=== PATIENT | male | born 1970 | race Two or more races ===

== ENCOUNTER 2025-01-26 05:29 | Inpatient (IN) | payer BC, OTHER ==
[~2025-01-26] VITALS: Ht 175.3 cm; Wt 91.3 kg
[2025-01-26 06:45] VITALS: PULSE 59; RESP 20; O2SAT 99
--- NOTE | 2025-01-26 06:48 | ED.PDOC ---
GI ASSESSMENT HPI Comments 54-year-old male with PMHx Diverticulitis presents with a chief complaint of abdominal pain x 01/23/2025 onset. Patient states that his pain is localized to his LLQ, nonradiating, and feels just like his diverticulitis in the past. Patient denies any nausea, vomiting, diarrhea, or rectal bleeding. No other symptoms or modifying factors present at this time. Chief Complaint: Abdominal Pain Time Seen by MD: 06:19 Reviewed Notes: Medications, Allergies Allergies: Coded Allergies: NO KNOWN ALLERGIES (Unverified , 01/26/25) Information Source: Patient Mode of Arrival: Ambulatory Timing: Days Duration: Since onset Prehospital treatment: None Quality: Cramping Vomitus: None Stool: Normal Severity: Moderate Recent: None Pain Location: LLQ Associated sign and symptoms: Abdominal Pain Past Medical History Past Medical History (Other): DIVERTICULITIS Surgical History: Denies all surgeries Family History Family History: Reviewed,noncontributory to illness Social History Smoker: Non-Smoker Alcohol: Denies ETOH Use Drugs: Denies Drug Use Lives In: Home Constitutional: denies: chills, diaphoresis, fatigue, fever, malaise, sweats, weakness, others EENTM: denies: blurred vision, double vision, ear bleeding, ear discharge, ear drainage, ear pain, ear ringing, eye pain, eye redness, hearing loss, mouth pain, mouth swelling, nasal discharge, nose bleeding, nose congestion, nose pain, photophobia, tearing, throat pain, throat swelling, voice changes, others Respiratory: denies: cough, hemoptysis, orthopnea, SOB at rest, shortness of breath, SOB with excertion, stridor, wheezing, others Cardiovascular: denies: chest pain, dizzy spells, diaphoresis, Dyspnea on exertion, edema, irregular heart beat, left arm pain, lightheadedness, palpitations, PND, syncope, others Gastrointestinal: reports: abdominal pain; denies: abdomen distended, blood streaked bowels, constipated, diarrhea, dysphagia, difficulty swallowing, hematemesis, melena, nausea, poor appetite, poor fluid intake, rectal bleeding, rectal pain, vomiting, others Genitourinary: denies: burning, dysuria, flank pain, frequency, hematuria, incontinence, penile discharge, penile sore, pain, testicle pain, testicle swelling, urgency, others Neurological: denies: dizziness, fainting, headache, left sided numbness, left sided weakness, numbness, paresthesia, pre-existing deficit, right sided numbness, right sided weakness, seizure, speech problems, tingling, tremors, weakness, others Musculoskeletal: denies: back pain, gout, joint pain, joint swelling, muscle pain, muscle stiffness, neck pain, others Integumetry: denies: bruises, change in color, change in hair/nails, dryness, laceration, lesions, lumps, rash, wounds, others Allergic/Immunocompromised: denies: Difficulty Healing, Frequent Infections, Hives, Itching, others Hematologic/Lymphatic: denies: anemia, blood clots, easy bleeding, easy bruising, swollen glands, others Endocrine: denies: excessive hunger, excessive sweating, excessive thirst, excessive urination, flushing, intolerance to cold, intolerance to heat, unexplained weight gain, unexplained weight loss, others Psychiatric: denies: anxiety, bipolar disorder, depression, hopeless, panic disorder, schizophrenia, sleepless, suicidal, others All Other Systems: Reviewed and Negative Physical Exam General Appearance: No Apparent Distress, Normal HEENT: Normal ENT Inspection, Pharynx Normal, TMs Normal Neck: Full Range of Motion, Non-Tender, Normal, Normal Inspection Respiratory: Chest Non-Tender, Lungs Clear, No Accessory Muscle Use, No Respiratory Distress, Normal Breath Sounds Cardiovascular: No Edema, No JVD, No Murmur, No Gallop, Normal Peripheral Pulses, Regular Rate/Rhythm Breast Exam: Deferred Gastrointestinal: No Organomegaly, No Pulsatile Mass, Normal Bowel Sounds, Soft, Tenderness (LLQ) Genitalia: Deferred Pelvic: Deferred Rectal: Deferred Extremities: No calf tenderness, Normal capillary refill, Normal inspection, Normal range of motion, Non-tender, No pedal edema Musculoskeletal : Apperance: Normal Neurologic: Alert, necktie operator pockets and pieces II-XII nml as Tested, No Motor Deficits, Normal Affect, Normal Mood, No Sensory Deficits Cerebellar Function: Normal Reflexes: Normal Skin: Dry, Normal Color, Warm Lymphatic: No Adenopathy Was a procedure done? Was a procedure done?: No GI differential Dx Differential Diagnosis: Appendicitis, Bowel Obstruction, Constipation, Diverticular disease, Gastritis/PUD, Gastroenteritis, GI hemorrhage, Hernia, Inflammatory BD, Ischemic Bowel, Impaction, Mass, Kidney Stone X-Ray, Labs, Meds, VS Vital Signs Date Time Temp Pulse Resp B/P (MAP) Pulse Ox O2 Delivery O2 Flow Rate FiO2 01/26/25 10:30 84 20 132/67 (88) 96 01/26/25 08:00 71 20 122/57 (78) 93 01/26/25 08:00 83 01/26/25 07:35 98.1 65 16 85/38 (54) 100 98.1 01/26/25 07:35 16 100 Room Air* 0 21 01/26/25 06:51 122/68 01/26/25 06:45 98.1 59 20 122/68 (86) 99 98.1 01/26/25 06:45 59 20 99 Room Air* 0 21 01/26/25 05:39 98.2 104 16 115/77 (90) 99 98.2 Lab Test 01/26/25 09:24 01/26/25 07:08 Range/Units Lactic Acid Level 1.0 0.4-2.0 mmol/L Troponin I High Sensitivity < 3 L < 3 L </=54 ng/L White Blood Count 16.9 H 4.4-10.8 10^3/uL Red Blood Count 5.11 4.5-5.90 10^6/uL Hemoglobin 16.0 13.5-17.5 g/dL Hematocrit 46.7 41.0-53.0 % Mean Corpuscular Volume 91.4 80.0-100.0 fL Mean Corpuscular Hemoglobin 31.3 28.0-32.0 pg Mean Corpuscular Hemoglobin Concent 34.2 32.0-36.0 g/dL Red Cell Distribution Width 13.8 11.8-14.3 % Platelet Count 297 140-450 10^3/uL Mean Platelet Volume 7.4 6.9-10.8 fL Neutrophils (%) (Auto) 82.3 H 37.0-80.0 % Lymphocytes (%) (Auto) 10.4 10.0-50.0 % Monocytes (%) (Auto) 6.8 0.0-12.0 % Eosinophils (%) (Auto) 0.2 0.0-7.0 % Basophils (%) (Auto) 0.3 0.0-2.0 % Neutrophils # (Auto) 13.9 H 1.6-8.6 10 ^3/uL Lymphocytes # (Auto) 1.8 0.4-5.4 10 ^3/uL Monocytes # (Auto) 1.2 0-1.3 10 ^3/uL Eosinophils # (Auto) 0 0-0.8 10 ^3/uL Basophils # (Auto) 0 0-0.2 10 ^3/uL Nucleated Red Blood Cells 0.2 % Prothrombin Time 10.6 9.3-11.8 sec Prothrombin Time INR 1.00 0.9-1.15 Activated Partial Thromboplast Time 27.3 24.5-34.5 SEC Sodium Level 137 136-145 mmol/L Potassium Level 4.0 3.5-5.1 mmol/L Chloride Level 101 98-107 mmol/L Carbon Dioxide Level 28 20-31 mmol/L Anion Gap 8 5-15 Blood Urea Nitrogen 7 L 9-23 mg/dL Creatinine 1.09 0.700-1.30 mg/dL Glomerular Filtration Rate Calc 80 >90 mL/min BUN/Creatinine Ratio 6.4 L 10.0-20.0 Serum Glucose 128 H 74-106 mg/dL Calcium Level 10.3 8.7-10.4 mg/dL Current Medications Medications (Trade) Dose Ordered Sig/Lonnie Route Start Time Stop Time Status Last Admin Fentanyl Citrate 12.5 mcg ONCE ONCE IM 01/26/25 06:45 01/26/25 06:46 DC 01/26/25 06:51 Piperacillin Sod/ Tazobactam Sod 100 ml @ 100 mls/hr ONCE ONCE IV 01/26/25 09:15 01/26/25 10:14 DC 01/26/25 09:23 Metronidazole 100 ml @ 100 mls/hr ONCE ONCE IV 01/26/25 09:15 01/26/25 10:14 DC 01/26/25 10:29 Sodium Chloride 2,100 ml @ 2,100 mls/hr ONCE ONCE IV 01/26/25 09:15 01/26/25 10:14 DC 01/26/25 09:17 Time of 1ST Reevaluation: 06:49 Reevaluation 1ST: Unchanged Time of 2ND Reevaluation: 11:01 Reevaluation 2ND: Improved Patient Education/Counseling: Diagnosis, Treatment, Prognosis, Need For Follow Up Family Education/Counseling: Diagnosis, Treatment, Prognosis, Need For Follow Up Additional Information The following tests were ordered, and results were reviewed by me: Fentanyl IV, CT AB/Pelv, UA, BMP, CBC, UA I reviewed and agreed with the following test results read by other providers: Radiologist I discussed treatment and results with medical personnel and: Patient pt is resting comfortably now. i updated him about the findings and decision to admit. he is agreeable Sepsis Sepsis Reasesment Focused Exam Sepsis focused exam: time: (1102- pot is improved and resting comfortably) Departure 1 Departure Time of Disposition: 11:02 Impression: Primary Impression: Perforated diverticulum Additional Impression: Sepsis Qualified Codes: A41.9 - Sepsis, unspecified organism Disposition: ADMITTED INPATIENT Admit to: Tele Condition: Serious Discharged With: Self Critical Care Note Critical Care Time?: Yes (55 min-critical care time only) Critical care comment: Due to concerns for patients condition deteriorating, the care required my highest level of attention and readiness to intervene. I assessed the patient, reviewed the medical records, ordered the appropriate tests and treatments, then reassessed for results and responsiveness. I communicated with medical personnel and consultants and formulated a plan of care. Total critical care time excludes any procedures Stability Stability form required: No Heart Score Heart Score: Heart Score Response (Comments) Value History N/A 0 EKG N/A 0 Age N/A 0 Risk Factors N/A 0 Troponin N/A 0 Total 0 I personally scribed for JOVAN CAMARGO MD ([email or web address]) on 01/26/25 at 06:48. Electronically submitted by Arpan Gordon ([email or web address]). I personally scribed for JOVAN CAMARGO MD ([email or web address]) on 01/26/25 at 06:50. Electronically submitted by Arpan Gordon ([email or web address]). JOVAN CAMARGO MD Jan 26, 2025 06:48
[2025-01-26] MEDS: fentaNYL CITRATE 100 MCG/2 ML VL IM ONE (06:51)
[2025-01-26 07:32] LABS: Basophils # (auto) 0 10 ^3/uL (0-0.2); Basophils % (auto) 0.3 % (0.0-2.0); Eosinophils # (auto) 0 10 ^3/uL (0-0.8); Eosinophils % (auto) 0.2 % (0.0-7.0); Hematocrit 46.7 % (41.0-53.0); Lymphocytes # (auto) 1.8 10 ^3/uL (0.4-5.4); Lymphocytes % (auto) 10.4 % (10.0-50.0); Mean Corpuscular Hemoglobin 31.3 pg (28.0-32.0); Mean Corpuscular Hgb Conc. 34.2 g/dL (32.0-36.0); Mean Corpuscular Volume 91.4 fL (80.0-100.0); Monocytes # (auto) 1.2 10 ^3/uL (0-1.3); Monocytes % (auto) 6.8 % (0.0-12.0); Neutrophils # (auto) 13.9 10 ^3/uL (1.6-8.6); Neutrophils % (auto) 82.3 % (37.0-80.0); Nucleated Red Blood Cells % 0.2 %; Platelet Count (auto) 297 10^3/uL (140-450); Red Blood Cells 5.11 10^6/uL (4.5-5.90); Red Cell Distribution Width 13.8 % (11.8-14.3); White Blood Cell 16.9 10^3/uL (4.4-10.8)
[2025-01-26 07:33] LABS: Chloride 101 mmol/L (98-107); Sodium 137 mmol/L (136-145)
[2025-01-26 07:34] LABS: Anion Gap 8 (5-15); Carbon Dioxide 28 mmol/L (20-31)
[2025-01-26 07:35] VITALS: RESP 16; O2SAT 100
[2025-01-26 07:35] LABS: Calcium 10.3 mg/dL (8.7-10.4)
[2025-01-26 07:40] LABS: BUN/Creatinine Ratio 6.4 (10.0-20.0)
[2025-01-26 07:43] LABS: Blood Urea Nitrogen 7 mg/dL (9-23); Glucose 128 mg/dL (74-106)
--- NOTE | 2025-01-26 09:05 | DVH ---
CT CT AB PEL WO CON-NO ORAL OR IV INDICATION: llq pain, history of diverticulitis EXAM DATE: 01/26/2025 08:25 AM COMPARISON: None RADIATION DOSE: CTDIvol: 11.79 mGy, DLP: 680.43 mGy*cm PROCEDURE: Helical CT images were obtained of the abdomen and pelvis without IV contrast Sagittal and coronal reconstructions are provided. ORAL CONTRAST: None. ADDITIONAL IMAGES / REFORMATS: None All C T scans at this medical facility are performed using dose modulation techniques as appropriate to a p erformed exam including the following: Automated exposure control was utilized; adjustment of the MA and/or KV according to patient size; and use of iterative reconstruction technique. FINDINGS: LUNG BASE: Normal. LIVER: 1.7 cm inferior hepatic tip cystic lesion. GALLBLADDER AND BILIARY TREE: No calcified gallstones. Normal caliber wall. No intra- or extrahepatic biliary ductal dilation. PANCREAS: Normal. SPLEEN: Normal. BOWEL: Moderate colonic diverticulosis with pericolonic fat stranding at the sigmoid. Possible contai shyam perforation of diverticuli. Normal appendix. ADRENALS: Normal. KIDNEYS AND URETER: 1.8 cm left renal cystic lesion. BLADDER: Normal. REPRODUCTIVE ORGANS: Normal. LYMPH NODES:No lymphadenopathy. PERITONEUM: No ascites or free air. No other fluid collection. VESSELS: Scattered atherosclerotic calcifications are noted. RETROPERITONEUM: Normal. ABDOMINAL WALL: Normal. BONES: Scattered osseous degenerative changes are noted. IMPRESSION: Moderate colonic diverticulosis with pericolonic fat stranding at the sigmoid. Possible contained per foration of diverticuli. Critical Result: contained perforation of diverticuli Findings discussed with JOVAN CAMARGO at 01/26/2025 08:58 AM and acknowledged receipt and understanding of the findings.
[2025-01-26] MEDS: SODIUM CHLORIDE 0.9% 2,100 ML IV ONE (09:17)
[2025-01-26] MEDS: PIPERACILLIN-TAZO 4.5GM 100 ML IV ONE (09:23)
[2025-01-26 09:54] LABS: Partial Thromboplastin Time 27.3 SEC (24.5-34.5); Prothrombin Time 10.6 sec (9.3-11.8)
[2025-01-26] MEDS: metroNIDAZOLE 500MG/100ML 100 ML IV ONE (10:29)
--- NOTE | 2025-01-26 12:06 | DVHINCON2 ---
Date of service: Jan 26, 2025 History of Present Illness 54-year-old male with a history of Lyme disease complaining of three day history of left lower quadrant abdominal pain with some loose stools. Patient denies any fevers, chills, nausea or vomiting. Patient had a previous history of sigmoid diverticulitis several years ago that was successfully treated conservatively. Last colonoscopy was 10 years ago. Past Medical History History of Lyme disease Past Surgical History None Family History Noncontributory Social History Denies alcohol, tobacco, IV drug use Allergies: Coded Allergies: NO KNOWN ALLERGIES (Unverified , 01/26/25) Vital Signs Vital Signs Date Time Temp Pulse Resp B/P (MAP) Pulse Ox O2 Delivery O2 Flow Rate FiO2 01/26/25 10:30 84 20 132/67 (88) 96 01/26/25 07:35 98.1 98.1 01/26/25 07:35 Room Air* 0 21 Physical Exam GEN: Age-appropriate male in no acute distress. Alert. CV: RRR Respiratory: CTAB ABD: Localized left lower quadrant tenderness to palpation with localized guarding. Nondistended. CT of the abdomen and pelvis: Moderate colonic diverticulosis with pericolonic fat stranding of the sigmoid colon with possible contained perforation of the diverticula. Labs/Diagnostic Data Labs Test 01/26/25 09:24 01/26/25 07:08 Range/Units Lactic Acid Level 1.0 0.4-2.0 mmol/L Troponin I High Sensitivity < 3 L </=54 ng/L White Blood Count 16.9 H 4.4-10.8 10^3/uL Red Blood Count 5.11 4.5-5.90 10^6/uL Hemoglobin 16.0 13.5-17.5 g/dL Hematocrit 46.7 41.0-53.0 % Mean Corpuscular Volume 91.4 80.0-100.0 fL Mean Corpuscular Hemoglobin 31.3 28.0-32.0 pg Mean Corpuscular Hemoglobin Concent 34.2 32.0-36.0 g/dL Red Cell Distribution Width 13.8 11.8-14.3 % Platelet Count 297 140-450 10^3/uL Mean Platelet Volume 7.4 6.9-10.8 fL Neutrophils (%) (Auto) 82.3 H 37.0-80.0 % Lymphocytes (%) (Auto) 10.4 10.0-50.0 % Monocytes (%) (Auto) 6.8 0.0-12.0 % Eosinophils (%) (Auto) 0.2 0.0-7.0 % Basophils (%) (Auto) 0.3 0.0-2.0 % Neutrophils # (Auto) 13.9 H 1.6-8.6 10 ^3/uL Lymphocytes # (Auto) 1.8 0.4-5.4 10 ^3/uL Monocytes # (Auto) 1.2 0-1.3 10 ^3/uL Eosinophils # (Auto) 0 0-0.8 10 ^3/uL Basophils # (Auto) 0 0-0.2 10 ^3/uL Nucleated Red Blood Cells 0.2 % Prothrombin Time 10.6 9.3-11.8 sec Prothrombin Time INR 1.00 0.9-1.15 Activated Partial Thromboplast Time 27.3 24.5-34.5 SEC Sodium Level 137 136-145 mmol/L Potassium Level 4.0 3.5-5.1 mmol/L Chloride Level 101 98-107 mmol/L Carbon Dioxide Level 28 20-31 mmol/L Anion Gap 8 5-15 Blood Urea Nitrogen 7 L 9-23 mg/dL Creatinine 1.09 0.700-1.30 mg/dL Glomerular Filtration Rate Calc 80 >90 mL/min BUN/Creatinine Ratio 6.4 L 10.0-20.0 Serum Glucose 128 H 74-106 mg/dL Calcium Level 10.3 8.7-10.4 mg/dL Assessment 1. Sigmoid diverticulitis with possible contained perforation. Plan/Recommendation 1. Continue with broad-spectrum IV antibiotics and NPO status. Plan discussed with: Patient GEOVANNA MARTINEZ MD Jan 26, 2025 12:06
[2025-01-26 12:29] LABS: Urine Bacteria None Seen /hpf (None Seen)
[2025-01-26 12:37] LABS: Urine Blood Negative /uL (Negative); Urine Clarity Clear (Clear); Urine Color Light-Yellow (Yellow); Urine Protein, UAD Negative (Negative); Urine Specific Gravity 1.015 (1.001-1.035); Urine Squamous Epithelial Cell None Seen /hpf (<5); Urine Urobilinogen Normal (Negative); Urine WBC < 1 /HPF (0-3); Urine pH 7.5 (5.0-9.0)
[2025-01-26] MEDS ORDERED: ONDANSETRON HCL 4 MG/2 ML VIAL IV PRN (13:00)
[2025-01-26] MEDS ORDERED: ACETAMINOPHEN 325 MG TAB PO PRN (13:00)
--- NOTE | 2025-01-26 13:31 | DVHHP2 ---
History of Present Illness Reason for Visit: Abdominal pain History of Present Illness This 54-year-old male with past medical history of diverticulitis presents in the ED with a chief complaint of abdominal pain. The patient reports left lower quadrant abdominal pain associated with nausea started three days ago. Denies fever, chills, vomiting, hematemesis, diarrhea, or melena. Past Medical History Diverticulitis Past Surgical History Denies Family History Reviewed, non-contributory to the management of this case. Past Social History The patient lives at home, denies smoking, alcohol or illicit drugs abuse. Review of Systems Constitutional: Yes: Malaise; No: Fever, Chills, Sweats, Weakness, Other Eyes: No: Pain, Vision change, Conjunctivae inflammation, Eyelid inflammation, Other, Redness ENT: No: Ear pain, Ear discharge, Nose pain, Nose discharge, Nose congestion, Mouth pain, Mouth swelling, Throat pain, Throat swelling, Other Respiratory: No: Cough, Dry, Shortness of breath, SOB with excertion, Wheezing, Hemoptysis, Pleuritic Pain, Sputum, Wheezing, Other Cardiovascular: Palpitations, Other; No: Chest Pain, Orthopnea, Paroxysmal Noc. Dyspnea, Edema, Lt Headedness Gastrointestinal: Nausea, Abdominal Pain; No: Vomiting, Diarrhea, Constipation, Melena, Hematochezia, Other Genitourinary: No Dysuria, No Frequency, No Incontinence, No Hematuria, No Retention, No Other Musculoskeletal: No: other, neck pain, shoulder pain, arm pain, back pain, hand pain, leg pain, foot pain Skin: No: Rash, Lesions, Jaundice, Bruising, Other Neurological: No: Weakness, Numbness, Incoordination, Change in speech, Confusion, Seizures, Other Allergies: Coded Allergies: NO KNOWN ALLERGIES (Unverified , 01/26/25) Medications Current Medications Medications Dose Ordered Sig/Lonnie Route Start Time Stop Time Status Last Admin Dose Admin Piperacillin Sod/ Tazobactam Sod 100 ml @ 100 mls/hr Q8HP IV 01/26/25 14:00 Exam Vital Signs Vital Signs Date Time Temp Pulse Resp B/P (MAP) Pulse Ox O2 Delivery O2 Flow Rate FiO2 01/26/25 12:00 85 01/26/25 10:30 20 132/67 (88) 96 01/26/25 07:35 98.1 98.1 01/26/25 07:35 Room Air* 0 21 General Appearance: Alert, Oriented X3, Cooperative, mild distress HEENT: Atraumatic, PERRLA, EOMI, Mucous membr. moist/pink Respiratory: Clear to auscultation, Normal air movement Cardiovascular: Regular rate, Normal S1, Normal S2, Other Abdominal: Normal bowel sounds, Other (tenderness) Extremities: No clubbing, No cyanosis, No edema, Normal pulses Skin: No rashes, No breakdown, No significant lesion Neuro: Normal gait, Normal tone Psych/Mental Status: Mental status NL Labs/Xrays Labs Test 01/26/25 12:29 01/26/25 09:24 01/26/25 07:08 Range/Units Urine Color Light-yellow Yellow Urine Clarity Clear Clear Urine pH 7.5 5.0-9.0 Urine Specific [place] 1.015 1.001-1.035 Urine Protein Negative Negative Urine Ketones Negative Negative Urine Blood Negative Negative /uL Urine Nitrite Negative Negative Urine Bilirubin Negative Negative Urine Urobilinogen Normal Negative mg/dL Urine Leukocyte Esterase Negative Negative /uL Urine RBC <1 0 - 3 /hpf Urine Microscopic WBC < 1 0-3 /HPF Urine Squamous Epithelial Cells None seen <5 /hpf Urine Bacteria None seen None Seen /hpf Urine Glucose Normal Normal mg/dL Lactic Acid Level 1.0 0.4-2.0 mmol/L Troponin I High Sensitivity < 3 L </=54 ng/L White Blood Count 16.9 H 4.4-10.8 10^3/uL Red Blood Count 5.11 4.5-5.90 10^6/uL Hemoglobin 16.0 13.5-17.5 g/dL Hematocrit 46.7 41.0-53.0 % Mean Corpuscular Volume 91.4 80.0-100.0 fL Mean Corpuscular Hemoglobin 31.3 28.0-32.0 pg Mean Corpuscular Hemoglobin Concent 34.2 32.0-36.0 g/dL Red Cell Distribution Width 13.8 11.8-14.3 % Platelet Count 297 140-450 10^3/uL Mean Platelet Volume 7.4 6.9-10.8 fL Neutrophils (%) (Auto) 82.3 H 37.0-80.0 % Lymphocytes (%) (Auto) 10.4 10.0-50.0 % Monocytes (%) (Auto) 6.8 0.0-12.0 % Eosinophils (%) (Auto) 0.2 0.0-7.0 % Basophils (%) (Auto) 0.3 0.0-2.0 % Neutrophils # (Auto) 13.9 H 1.6-8.6 10 ^3/uL Lymphocytes # (Auto) 1.8 0.4-5.4 10 ^3/uL Monocytes # (Auto) 1.2 0-1.3 10 ^3/uL Eosinophils # (Auto) 0 0-0.8 10 ^3/uL Basophils # (Auto) 0 0-0.2 10 ^3/uL Nucleated Red Blood Cells 0.2 % Prothrombin Time 10.6 9.3-11.8 sec Prothrombin Time INR 1.00 0.9-1.15 Activated Partial Thromboplast Time 27.3 24.5-34.5 SEC Sodium Level 137 136-145 mmol/L Potassium Level 4.0 3.5-5.1 mmol/L Chloride Level 101 98-107 mmol/L Carbon Dioxide Level 28 20-31 mmol/L Anion Gap 8 5-15 Blood Urea Nitrogen 7 L 9-23 mg/dL Creatinine 1.09 0.700-1.30 mg/dL Glomerular Filtration Rate Calc 80 >90 mL/min BUN/Creatinine Ratio 6.4 L 10.0-20.0 Serum Glucose 128 H 74-106 mg/dL Calcium Level 10.3 8.7-10.4 mg/dL PROCEDURE(s): ABPL - CT AB PEL WO CON-NO ORAL OR IV REASON: llq pain, history of diverticulitis ORDER NUMBER(s): [id number], ACCESSION NUMBER(s): [id number] CT CT AB PEL WO CON-NO ORAL OR IV INDICATION: llq pain, history of diverticulitis EXAM DATE: 01/26/2025 08:25 AM COMPARISON: None RADIATION DOSE: CTDIvol: 11.79 mGy, DLP: 680.43 mGy*cm PROCEDURE: Helical CT images were obtained of the abdomen and pelvis without IV contrast Sagittal and coronal reconstructions are provided. ORAL CONTRAST: None. ADDITIONAL IMAGES / REFORMATS: None All CT scans at this medical facility are performed using dose modulation techniques as appropriate to a performed exam including the following: Automated exposure control was utilized; adjustment of the MA and/or KV according to patient size; and use of iterative reconstruction technique. FINDINGS: LUNG BASE: Normal. LIVER: 1.7 cm inferior hepatic tip cystic lesion. GALLBLADDER AND BILIARY TREE: No calcified gallstones. Normal caliber wall. No intra- or extrahepatic biliary ductal dilation. PANCREAS: Normal. SPLEEN: Normal. BOWEL: Moderate colonic diverticulosis with pericolonic fat stranding at the sigmoid. Possible contained perforation of diverticuli. Normal appendix. ADRENALS: Normal. KIDNEYS AND URETER: 1.8 cm left renal cystic lesion. BLADDER: Normal. REPRODUCTIVE ORGANS: Normal. LYMPH NODES:No lymphadenopathy. PERITONEUM: No ascites or free air. No other fluid collection. VESSELS: Scattered atherosclerotic calcifications are noted. RETROPERITONEUM: Normal. ABDOMINAL WALL: Normal. BONES: Scattered osseous degenerative changes are noted. IMPRESSION: Moderate colonic diverticulosis with pericolonic fat stranding at the sigmoid. Possible contained perforation of diverticuli. Critical Result: contained perforation of diverticuli Findings discussed with JOVAN CAMARGO at 01/26/2025 08:58 AM and acknowledged receipt and understanding of the findings. Assessment/Plan Assessment/Plan # acute diverticulitis with possible contained perforation # hx of diverticulitis Admit to med/surg unit Surgical consult NPO Empiric antibiotics IV fluid # overweight Lifestyle modification counseled Medical plan discussed with patient Plan discussed with: Patient My Orders Orders - FABIÁN FREITAS Procedure Category Date Status Time Admit ADMIT 01/26/25 Transmitted 12:55 Code Status CODE 01/26/25 Transmitted 12:55 0.9% Ns 1000 Ml PHA 01/26/25 Transmitted 13:00 Hydrocodone-Acet PHA 01/26/25 Transmitted 5/325mg Tab ([place] 13:00 Ondansetron Hcl PHA 01/26/25 Transmitted (Zofran) 13:00 Complete Blood Count LAB 01/27/25 Verified 04:00 Comprehensive LAB 01/27/25 Verified Metabolic Panel 04:00 Acetaminophen Tablet PHA 01/26/25 Transmitted (Tylenol Tablet) 13:00 Morphine Sulfate PHA 01/26/25 Transmitted Injection 13:00 Zosyn Extended PHA 01/26/25 Transmitted Infusion 14:00 Metronidazole Ivpb PHA 01/26/25 Transmitted Flagyl 14:00 Npo Except For CATHLEEN 01/26/25 Transmitted Medications 12:55 Date of Service: Jan 26, 2025 Billing Provider: JUAT,FABIÁN C MACHINE SET UP Common Visit Codes: [id number] INP/OBS CARE (HIGH) FABIÁN FREITAS MACHINE SET UP Jan 26, 2025 13:31
[2025-01-26] MEDS: metroNIDAZOLE 500MG/100ML 100 ML IV SCH (14:00)
[2025-01-26] MEDS ORDERED: PIPERACILLIN-TAZOB 3.375GM 100 ML IV SCH (14:00)
[2025-01-26] MEDS: SODIUM CHLORIDE 0.9% 1,000 ML IV SCH (15:01)
[2025-01-26 17:59] VITALS: BP 115/69; PULSE 72; RESP 18; TEMP 98.9; O2SAT 93
[2025-01-26] MEDS: MORPHINE SULFATE INJ 2 MG/ml SYRG IV PRN (18:24)
[2025-01-26 20:00] VITALS: PULSE 72; RESP 20; O2SAT 95
[2025-01-26] MEDS: PIPERACILLIN-TAZOB 3.375GM 100 ML IV SCH (20:27)
[2025-01-26 21:00] VITALS: BP 111/62; PULSE 72; RESP 20; TEMP 98.6; O2SAT 95
[2025-01-26] MEDS: HYDROcodone-ACET 5/325MG TAB PO PRN (22:00)
[2025-01-27 01:00] VITALS: BP 98/57; PULSE 58; RESP 16; TEMP 99.1; O2SAT 95
[2025-01-27 05:00] VITALS: BP 111/72; PULSE 73; RESP 12; TEMP 97.7; O2SAT 96
[2025-01-27 07:14] LABS: Basophils # (auto) 0 10 ^3/uL (0-0.2); Basophils % (auto) 0.2 % (0.0-2.0); Eosinophils # (auto) 0.1 10 ^3/uL (0-0.8); Hemoglobin 13.9 g/dL (13.5-17.5); Lymphocytes # (auto) 1.3 10 ^3/uL (0.4-5.4); Lymphocytes % (auto) 13.3 % (10.0-50.0); Mean Corpuscular Hemoglobin 31.3 pg (28.0-32.0); Monocytes # (auto) 0.7 10 ^3/uL (0-1.3); Monocytes % (auto) 6.9 % (0.0-12.0); Neutrophils # (auto) 7.8 10 ^3/uL (1.6-8.6); Neutrophils % (auto) 78.6 % (37.0-80.0); Nucleated Red Blood Cells % 0.1 %; Platelet Count (auto) 245 10^3/uL (140-450); Red Blood Cells 4.45 10^6/uL (4.5-5.90); Red Cell Distribution Width 13.7 % (11.8-14.3); White Blood Cell 9.9 10^3/uL (4.4-10.8)
[2025-01-27 07:25] LABS: Alanine Aminotransferase 15 U/L (7-40); Albumin 4.1 g/dL (3.2-4.8); Anion Gap 7 (5-15); BUN/Creatinine Ratio 8.8 (10.0-20.0); Calcium 9.3 mg/dL (8.7-10.4); Carbon Dioxide 24 mmol/L (20-31); Glucose 99 mg/dL (74-106); Sodium 139 mmol/L (136-145); Total Protein 6.2 g/dL (5.7-8.2)
[2025-01-27 07:26] LABS: Bilirubin, Total 0.8 mg/dL (0.2-1.0)
[2025-01-27 07:27] LABS: Alkaline Phosphatase 34 U/L (46-116); Aspartate Aminotransferase 11 U/L (13-40); Blood Urea Nitrogen 8 mg/dL (9-23); Chloride 108 mmol/L (98-107); Potassium 3.5 mmol/L (3.5-5.1)
[2025-01-27 08:00] VITALS: PULSE 72; RESP 20; O2SAT 95
[2025-01-27 08:58] VITALS: BP 113/74; PULSE 64; RESP 16; TEMP 97.5; O2SAT 99
--- NOTE | 2025-01-27 12:35 | DVHPN2 ---
Progress Note - Dictate Date Seen: Jan 27, 2025 Medical Necessity Reason Pt with a Central, PICC or Fol: No vital signs Vital Sign Date Time Temp Pulse Resp B/P (MAP) Pulse Ox O2 Delivery O2 Flow Rate FiO2 01/27/25 10:53 64 16 113/74 01/27/25 08:58 97.5 99 97.5 01/27/25 08:00 Room Air* 0 21 Total Intake and Output 01/26/25 01/26/25 01/27/25 15:00 23:00 07:00 Intake Total 2300 ml 100 ml Output Total 1020 ml Balance 2300 ml -920 ml medications Current Medications Medications Dose Ordered Sig/Lonnie Route Start Time Stop Time Status Last Admin Dose Admin Sodium Chloride 1,000 ml @ 100 mls/hr Q10H IV 01/26/25 13:00 01/27/25 10:54 100 MLS/HR Acetaminophen/ Hydrocodone Bitart 1 tab Q4HP PRN PO 01/26/25 13:00 01/26/25 22:00 1 TAB Ondansetron HCl 4 mg Q4HP PRN IV 01/26/25 13:00 Acetaminophen 650 mg Q6HP PRN PO 01/26/25 13:00 Morphine Sulfate 2 mg Q4HPRN PRN IV 01/26/25 13:00 01/27/25 10:53 2 MG Piperacillin Sod/ Tazobactam Sod 100 ml @ 25 mls/hr Q8HR IV 01/26/25 22:00 01/27/25 05:56 25 MLS/HR objective GEN: NAD ABD: soft. much less TTP. no G/R laboratory and microbiology Laboratory Tests 01/27/25 06:25 Test 01/27/25 06:25 Range/Units Serum Glucose 99 74-106 mg/dL Assessment/Plan A: 1. Sigmoid diverticulitis improving clinically on abx P: 1. clear liquid diet 2. if reza, then ok for DC home with oral abx if ok with hospitalist. Plan discussed with: Patient GEOVANNA MARTINEZ MD Jan 27, 2025 12:35
[2025-01-27 13:00] VITALS: BP 120/62; PULSE 69; RESP 16; TEMP 98.2; O2SAT 96
--- NOTE | 2025-01-27 15:31 | DVHDSRES ---
Discharge Summary Date of Admission Resident Creating Document: ROSALIO LEON RESIDENT Jan 26, 2025 at 12:55 Date of Discharge: Jan 27, 2025 Admitting Diagnosis Intractable abdominal pain likely due to sigmoid diverticulitis Wounds: No wound was present. Labs/Diagnostic Data: Laboratory Results Test 01/27/25 06:25 01/26/25 12:29 01/26/25 09:24 01/26/25 07:08 White Blood Count 9.9 10^3/uL (4.4-10.8) Red Blood Count 4.45 10^6/uL (4.5-5.90) Hemoglobin 13.9 g/dL (13.5-17.5) Hematocrit 41.0 % (41.0-53.0) Mean Corpuscular Volume 92.0 fL (80.0-100.0) Mean Corpuscular Hemoglobin 31.3 pg (28.0-32.0) Mean Corpuscular Hemoglobin Concent 34.0 g/dL (32.0-36.0) Red Cell Distribution Width 13.7 % (11.8-14.3) Platelet Count 245 10^3/uL (140-450) Mean Platelet Volume 7.7 fL (6.9-10.8) Neutrophils (%) (Auto) 78.6 % (37.0-80.0) Lymphocytes (%) (Auto) 13.3 % (10.0-50.0) Monocytes (%) (Auto) 6.9 % (0.0-12.0) Eosinophils (%) (Auto) 1.0 % (0.0-7.0) Basophils (%) (Auto) 0.2 % (0.0-2.0) Neutrophils # (Auto) 7.8 10 ^3/uL (1.6-8.6) Lymphocytes # (Auto) 1.3 10 ^3/uL (0.4-5.4) Monocytes # (Auto) 0.7 10 ^3/uL (0-1.3) Eosinophils # (Auto) 0.1 10 ^3/uL (0-0.8) Basophils # (Auto) 0 10 ^3/uL (0-0.2) Nucleated Red Blood Cells 0.1 % Sodium Level 139 mmol/L (136-145) Potassium Level 3.5 mmol/L (3.5-5.1) Chloride Level 108 mmol/L (98-107) Carbon Dioxide Level 24 mmol/L (20-31) Anion Gap 7 (5-15) Blood Urea Nitrogen 8 mg/dL (9-23) Creatinine 0.91 mg/dL (0.700-1.30) Glomerular Filtration Rate Calc 99 mL/min (>90) BUN/Creatinine Ratio 8.8 (10.0-20.0) Serum Glucose 99 mg/dL (74-106) Calcium Level 9.3 mg/dL (8.7-10.4) Total Bilirubin 0.8 mg/dL (0.2-1.0) Aspartate Amino Transferase (AST) 11 U/L (13-40) Alanine Aminotransferase (ALT) 15 U/L (7-40) Alkaline Phosphatase 34 U/L (46-116) Total Protein 6.2 g/dL (5.7-8.2) Albumin 4.1 g/dL (3.2-4.8) Urine Color Light-yellow (Yellow) Urine Clarity Clear (Clear) Urine pH 7.5 (5.0-9.0) Urine Specific [place] 1.015 (1.001-1.035) Urine Protein Negative (Negative) Urine Ketones Negative (Negative) Urine Blood Negative /uL (Negative) Urine Nitrite Negative (Negative) Urine Bilirubin Negative (Negative) Urine Urobilinogen Normal mg/dL (Negative) Urine Leukocyte Esterase Negative /uL (Negative) Urine RBC <1 /hpf (0 - 3) Urine Microscopic WBC < 1 /HPF (0-3) Urine Squamous Epithelial Cells None seen /hpf (<5) Urine Bacteria None seen /hpf (None Seen) Urine Glucose Normal mg/dL (Normal) Lactic Acid Level 1.0 mmol/L (0.4-2.0) Troponin I High Sensitivity < 3 ng/L (</=54) Prothrombin Time 10.6 sec (9.3-11.8) Prothrombin Time INR 1.00 (0.9-1.15) Activated Partial Thromboplast Time 27.3 SEC (24.5-34.5) Other Laboratory Tests 01/27/25 06:25 Brief Hx & Hospital Course: This 54-year-old male with past medical history of diverticulitis presents in the ED with a chief complaint of abdominal pain. The patient reports left lower quadrant abdominal pain associated with nausea started three days ago. Denies fever, chills, vomiting, hematemesis, diarrhea, or melena. Hospital course: Initial CT abdomen pelvis revealed Moderate colonic diverticulosis with pericolonic fat stranding at the sigmoid, possible contained perforation of diverticuli and elevated WBC count. Surgery recommended 1st NPO and IV antibiotic. Patient was treated with IV normal saline at 100 mL/hours and IV Zosyn 3.375 mg Q 8 hours. surgery evaluated the patient and recommended clear liquid diet and if patient can tolerate liquid diet than patient is cleared for discharge with oral antibiotic. Patient was tolerating clear liquid diet without any abdominal pain, nausea and vomiting. Discharge plan was discussed with the patient and all question were answered. patient is being discharged with Augmentin 875 mg p.o. b.i.d. for 7 days. Physical examination: General Appearance: Alert, Oriented X3, Cooperative, No acute distress HEENT: Atraumatic, PERRLA, EOMI, Mucous membrane moist/pink Respiratory: Clear to auscultation, Normal air movement Cardiovascular: Regular rate, Normal S1, Normal S2, No murmurs, no chest wall tenderness Abdominal: Normal bowel sounds, Soft, No tenderness, No hepatospenomegaly, No masses Extremities: No clubbing, No cyanosis, No edema, Normal pulses, No tenderness/swelling Skin: No rashes, No breakdown, No significant lesion Neuro: Normal gait, Normal speech, Strength at 5/5 X4 ext, Normal tone, Sensation intact, grossly intact cranial nerves. Psych/Mental Status: Mental status NL, Mood NL Consults/Reason for consult Surgery was consulted Operations or Procedures CT CT AB PEL WO CON-NO ORAL OR IV FINDINGS: LUNG BASE: Normal. LIVER: 1.7 cm inferior hepatic tip cystic lesion. GALLBLADDER AND BILIARY TREE: No calcified gallstones. Normal caliber wall. No intra- or extrahepatic biliary ductal dilation. PANCREAS: Normal. SPLEEN: Normal. BOWEL: Moderate colonic diverticulosis with pericolonic fat stranding at the sigmoid. Possible contained perforation of diverticuli. Normal appendix. ADRENALS: Normal. KIDNEYS AND URETER: 1.8 cm left renal cystic lesion. BLADDER: Normal. REPRODUCTIVE ORGANS: Normal. LYMPH NODES:No lymphadenopathy. PERITONEUM: No ascites or free air. No other fluid collection. VESSELS: Scattered atherosclerotic calcifications are noted. RETROPERITONEUM: Normal. ABDOMINAL WALL: Normal. BONES: Scattered osseous degenerative changes are noted. IMPRESSION: Moderate colonic diverticulosis with pericolonic fat stranding at the sigmoid. Possible contained perforation of diverticuli. Condition at Discharge: Stable Final Diagnosis/Problems List # Intractable abdominal pain likely due to sigmoid diverticulitis # Sigmoid diverticulitis with possible contained perforation Discharge Disposition: Home Discharge Instruct/Medications Diet: Regular Diet comment: Full liquid diet for 1 week. Activity: No Restrictions, As Tolerated Follow Up/Referral: Follow up with DC clinic in 1 week. Medications: Augmentin 875 mg p.o. b.i.d. for 7 days. Discharge Statement: "Patient was advised to return to the ER or call 911 if any headaches, dizziness, shortness of breath, chest pain, abdominal pain, bleeding, fevers, or worsening of medical condition. Patient was counseled about treatment plan, medications, possible side effects, patientverbalized understanding. All questions were answered to the best of my ability. This discharge took greater then 30 minutes in planning, reviewing documentation, counseling the patient, and discussing with other team members." ASSESSMENT ASSESSMENT Assessment # Intractable abdominal pain likely due to sigmoid diverticulitis # Sigmoid diverticulitis with possible contained perforation ROSALIO LEON RESIDENT Jan 27, 2025 15:31
[2025-01-27] MEDS ORDERED: AUG875T PO (15:40)
[2025-01-27 16:56] VITALS: BP 120/62; PULSE 69; RESP 18; TEMP 36.4; O2SAT 97
== END 2025-01-27 17:30 | disposition home or self-care (01) | DRG 872 ==
LOC: ER 05:29 → OVERFLOW 12:55 → WEST WING 17:30
PROVIDERS: ADMIT Student in an Organized Health Care Education/Training Program; ATTEND Student in an Organized Health Care Education/Training Program
DX: A41.9 Sepsis, unspecified organism (principal); K57.20 Diverticulitis of large intestine with perforation and abscess without bleeding; E66.3 Overweight; Z68.29 Body mass index [BMI] 29.0-29.9, adult; Z86.19 Personal history of other infectious and parasitic diseases; Z79.899 Other long term (current) drug therapy
CPT/HCPCS: 36415; 74176; 80048; 80053; 81001; 83605; 84484; 85025; 85610; 85730; 87040; 87086; 96365; 96367; 96372; 99291; G0378; J2543; J3490